=== PATIENT | female | born 1985 | race Caucasian/White ===

== ENCOUNTER → 2017-05-10 | Outpatient (CLI) | payer BC ==
[2017-05-10 13:20] LABS: CHOLESTEROL/HDL RATIO 1.8; FERRITIN 130.5 ng/ml (8.0-388.0); THYROID STIMULATING HORMONE 3.48 uIu/ml (0.300-4.500)
[2017-05-11 14:27] LABS: MICROSOMAL AB <1 IU/ML (<9)
== END | disposition home or self-care (01) ==
LOC: C.LAB1850 10:32
PROVIDERS: ATTEND Internal Medicine Endocrinology, Diabetes & Metabolism
DX: E28.2 Polycystic ovarian syndrome (principal); R53.83 Other fatigue

== ENCOUNTER → 2017-06-05 | Outpatient (CLI) | payer BC ==
[2017-06-05 15:15] LABS: THYROID STIMULATING HORMONE 1.79 uIu/ml (0.300-4.500)
== END | disposition home or self-care (01) ==
LOC: C.LAB1850 13:48
PROVIDERS: ATTEND Internal Medicine Endocrinology, Diabetes & Metabolism
DX: R53.83 Other fatigue (principal)